=== PATIENT | female | born 1960 | race Caucasian/White ===

== ENCOUNTER → 2019-06-24 | Outpatient (REF) | payer OTHER | LOC: M SFHCRHEU 15:10 | PROVIDERS: ATTEND Internal Medicine Rheumatology | DX: M06.9 Rheumatoid arthritis, unspecified (principal) ==

== ENCOUNTER 2025-04-27 12:36 | Day surgery (SDC) | payer MEDICARE ==
[~2025-04-27] VITALS: Ht 152.4 cm; Wt 58.0 kg
[~2025-04-27 12:36] MED LIST: ALEN70TA82 PO; ERGO500029 PO; HYDR-4517 PO; LEXA1TAB PO; LORA-243 PO; LR 1,000 ML IV SCH; METH4PACK PO; METO1TAB32 PO; OMEP1CAP73 PO; PROA1AER2 INH; RA B1TAB2 PO
[2025-04-27] MEDS: FLURBIPROFEN 0.03% OPHTH SOLN 2.5 ML OD SCH (14:07)
[2025-04-27] MEDS: CYCLOPENTOLATE 1% OPHTH SOLN 2 ML BTL OD SCH (14:07)
[2025-04-27] MEDS: PHENYLEPHRINE 2.5% OPHTH SOL 2ML OD SCH (14:07)
[2025-04-27] MEDS: TETRACAINE 0.5% OPHTH SOLN 4ML OD SCH (14:07)
[2025-04-27] MEDS ORDERED: MIDAZOLAM INJ 2 MG/2 ML VIAL As Ordered ONE (14:22)
[2025-04-27] MEDS: CEFUROXIME 1 MG/0.1 ML INTRACAMERAL INJ As Ordered ONE (14:37)
[2025-04-27] MEDS: LIDOCAINE 1% SDV 5 ML VIAL As Ordered ONE (14:37)
[2025-04-27 14:55] VITALS: BP 175/72; TEMP 97.4; O2SAT 94
== END 2025-04-27 15:20 | disposition home or self-care (01) ==
LOC: M SDC 12:36
PROVIDERS: ATTEND Ophthalmology
DX: H25.11 Age-related nuclear cataract, right eye (principal); F17.210 Nicotine dependence, cigarettes, uncomplicated; K21.9 Gastro-esophageal reflux disease without esophagitis; Z79.899 Other long term (current) drug therapy; Z88.0 Allergy status to penicillin; Z88.8 Allergy status to other drugs, medicaments and biological substances; Z90.710 Acquired absence of both cervix and uterus
CPT/HCPCS: 66984; J0697; J2250; J3010; V2632

== ENCOUNTER 2025-05-04 13:06 | Day surgery (SDC) | payer MEDICARE ==
[~2025-05-04] VITALS: Ht 152.4 cm; Wt 58.2 kg
[2025-05-04] MEDS ORDERED: MIDAZOLAM INJ 2 MG/2 ML VIAL As Ordered ONE (13:13)
[2025-05-04] MEDS: CYCLOPENTOLATE 1% OPHTH SOLN 2 ML BTL OS SCH (13:40)
[2025-05-04] MEDS: FLURBIPROFEN 0.03% OPHTH SOLN 2.5 ML OS SCH (13:41)
[2025-05-04] MEDS: PHENYLEPHRINE 2.5% OPHTH SOL 2ML OS SCH (13:41)
[2025-05-04] MEDS: TETRACAINE 0.5% OPHTH SOLN 4ML OS SCH (13:41)
[2025-05-04] MEDS: LIDOCAINE 1% SDV 5 ML VIAL As Ordered ONE (14:45)
[2025-05-04 14:58] VITALS: BP 114/56; TEMP 97.2; O2SAT 96
== END 2025-05-04 15:30 | disposition home or self-care (01) ==
LOC: M SDC 13:06
PROVIDERS: ATTEND Ophthalmology
DX: H25.12 Age-related nuclear cataract, left eye (principal); F17.210 Nicotine dependence, cigarettes, uncomplicated; K21.9 Gastro-esophageal reflux disease without esophagitis; Z79.52 Long term (current) use of systemic steroids; Z79.899 Other long term (current) drug therapy; Z88.8 Allergy status to other drugs, medicaments and biological substances; Z88.0 Allergy status to penicillin; Z90.710 Acquired absence of both cervix and uterus; Z87.891 Personal history of nicotine dependence; Z98.41 Cataract extraction status, right eye
CPT/HCPCS: 66984; J2250; J3010; V2632